=== PATIENT | male | born 1960 | race Caucasian/White ===

== ENCOUNTER → 2020-07-03 10:14 | Outpatient (CLI) | payer OTHER, SELFPAY ==
[2020-07-03 11:12] LABS: Add Manual Diff / Slide Review NO; Basophils Absolute Auto 0 /uL (0-100); Basophils Percent Auto 0.8 % (0-2); Eosinophils Absolute Auto 100 /uL (0-450); Eosinophils Percent Auto 2.3 % (2-4); Hematocrit 48.2 % (41-53); Hemoglobin 16.9 g/dL (13.5-17.5); Lymphocytes Absolute Auto 1400 /uL (1100-4500); Lymphocytes Percent Auto 33.2 % (25-40); Mean Corpuscular Volume 88.6 fL (80-100); Monocytes Absolute Auto 400 /uL (0-900); Monocytes Percent Auto 9.5 % (3-14); Neutrophils Absolute Auto 2300 /uL (1500-7000); Neutrophils Percent Auto 54.2 % (50-75); Platelet Count 132 X10^3/uL (150-400); Red Blood Cell Count 5.44 X10^6/uL (4.5-5.9); Red Cell Distribution Width 13.5 % (11.6-14.8); White Blood Cell Count 4.3 X10^3/uL (4.5-11.0)
[2020-07-03 11:31] LABS: Alanine Aminotransferase 49 IU/L (<50); Albumin 4.6 g/dL (3.5-5.0); Albumin Globulin Ratio 1.6 (1.0-2.8); Alkaline Phosphatase 72 U/L (38-126); Aspartate Aminotransferase 34 IU/L (17-59); BUN Creatinine Ratio 24.2 (6-22); Bilirubin Total 0.9 mg/dL (0.2-1.3); Blood Urea Nitrogen 22 mg/dL (9-20); Calcium 9.5 mg/dL (8.4-10.2); Carbon Dioxide 30 mmol/L (22-32); Chloride 105 mmol/L (98-107); Cholesterol 189 mg/dL (140-199); Estimated Glomerular Filt Rate > 60.0 mL/min (>60); Globulin 2.9 g/dL (1.7-4.1); Glucose 100 mg/dL (80-110); HDL Cholesterol 37 mg/dL (40-60); HEMOLYSIS < 15 (0-50); LDL Cholesterol Calculated 133 mg/dL (<100); Potassium 4.5 mmol/L (3.4-5.1); Sodium 141 mmol/L (137-145); Total Protein 7.5 g/dL (6.3-8.2); Triglycerides 93 mg/dL (35-150)
== END ==
PROVIDERS: PCP Family Medicine; Referring Provider Family Medicine; Visit Provider Family Medicine
DX: Z12.5 Encounter for screening for malignant neoplasm of prostate (principal); Z13.1 Encounter for screening for diabetes mellitus; I10 Essential (primary) hypertension
CPT/HCPCS: 36415; 80053; 80061; 83036; 85025; G0103

== ENCOUNTER → 2020-08-05 08:10 | Outpatient (CLI) | payer OTHER, SELFPAY ==
[2020-08-07 12:04] LABS: COVID19 Sendout Not Detected (Not Detect)
== END ==
PROVIDERS: PCP Family Medicine; Visit Provider Physician Assistant
DX: Z11.59 Encounter for screening for other viral diseases (principal)
CPT/HCPCS: 87635

== ENCOUNTER 2020-08-08 06:39 | Day surgery (SDC) | payer OTHER, SELFPAY ==
[2020-08-08] MEDS: LACTATED RINGERS 1,000 ML 200 ML IV (07:11)
[2020-08-08 07:21] VITALS: BP 144/87; PULSE 62; RESP 16; TEMP 36; O2SAT 98
[2020-08-08 07:23] VITALS: BMI 28.8
--- NOTE | 2020-08-08 07:29 | PM.HP.1 ---
History of Present Illness History of Present Illness Date Patient Seen: 08/08/20 Time Patient Seen: 07:29 Chief complaint: SCREENING COLONOSCOPY Narrative: Patient is here for screening colonoscopy. Last exam was 6 years ago. He had polyps removed at that time. No family history of cancer. Patient History Medical History Headache (Acute) History of colon polyps (Acute) Migraines (Acute) Pulmonary embolism (Resolved ~2000) Vision disorder (Chronic) Well adult exam (Acute) Surgical History Anesthesia (Resolved) History of foot surgery (Resolved ~08/1980) Family & Social History Family History Father Diabetes mellitus Hypertension Hyperlipidemia Stroke Mother Diabetes mellitus History of heart disease Hypertension Stroke Tobacco & Substance use: Smoking Status Never smoker Meds Home Medications and Allergies Home Medications Medication Instructions Recorded Confirmed Type ibuprofen 600 mg PO Q6HP #30 03/22/07/03/20 Rx Allergies Allergy/AdvReac Type Severity Reaction Status Date / Time calamine AdvReac Mild Skin Verified 08/08/20 07:20 redness Review of Systems Review of Systems ROS: Yes All systems reviewed with the patient and are negative except as otherwise documented Exam Vital Signs (past 8 hours): - 08/08/20 07:21 Temperature 96.8 F L Pulse Rate 62 Respiratory Rate 16 Blood Pressure 144/87 H Pulse Oximetry 98 Oxygen Delivery Method Room Air Narrative Exam Narrative: Pleasant cooperative patient no apparent distress. Lungs are clear to auscultation. No rales or rhonchi. Heart regular rate and rhythm no murmur gallop. Abdomen is soft nontender without mass. No obvious hernias. Patient is alert and oriented x3. Assessment & Plan Assessment & Plan narrative: The patient for a screening colonoscopy. I have discussed the procedure with them. Risks of bleeding, perforation which would necessitate major operation, failure to find remove all lesions, the potential tattoo were all discussed. All questions were answered. They wished to proceed.
--- NOTE | 2020-08-08 07:32 | PM.PREOP ---
Pre-operative Note COVID-19 COVID-19 status: Negative Result date/Date tested (Pos, Neg/Pending): 08/05/20 Interval Note History & Physical reviewed/Exam performed by Physician: Yes Changes to H&P: No ASA Class (for procedural sedation): I
[2020-08-08] MEDS: MIDAZOLAM 5 MG/5 ML VIAL IV (07:53)
[2020-08-08] MEDS: fentaNYL 250 MCG/5 ML INJ IV (07:55)
--- NOTE | 2020-08-08 08:15 | PM.OP.ENDO ---
Operative Date/Time/Diagnoses Date of procedure: 08/08/20 Time of procedure: 08:15 Pre-op diagnosis: History of polyps. Screening exam. Last exam 6 years ago. Post-op diagnosis: same (Diverticulosis sigmoid colon) Procedure & Clinicians Study performed: Colonoscopy Same procedure as scheduled: Yes Indications: Screening Surgeon: Deshaun Rutherford Procedure Notes SCOAP/Timeout: Perform Procedure in detail: The patient was placed in the left lateral decubitus position and underwent IV sedation directed by the surgeon consisting of fentanyl and Versed. Digital exam was unremarkable. Prostate is normal size.. The scope was inserted and advanced through the rectum into the sigmoid, descending, transverse, and ascending colon. Sigmoid diverticulosis was noted. The cecum was reached identified by the ileocecal valve and the appendiceal opening. . The scope was gradually brought out. No Polyps were found. The scope ultimately was retroflexed in the rectum. The appearance was normal. The scope was removed and the patient tolerated the procedure well. Prep was very good Scope withdrawal time: 7 minutes Sedation minutes: 22 Findings: diverticulosis (Sigmoid) Specimen(s): none sent Post-procedure Recommendations: Colonscopy in 5 years (Due to history of polyps) Follow up: as needed Disposition: PACU
[2020-08-08 08:16] VITALS: BP 107/66; PULSE 54; RESP 11; TEMP 36.1; O2SAT 98
[2020-08-08 08:21] VITALS: BP 103/64; PULSE 53; RESP 10; O2SAT 97
[2020-08-08 08:26] VITALS: BP 105/78; PULSE 55; RESP 12; O2SAT 98
--- NOTE | 2020-08-08 08:29 | SUR.PHASEI ---
denies dizziness, tolerating intake well, states that his normal systolic BP is 120ish. Oriented, drowsy, stable.
[2020-08-08 08:30] VITALS: BP 106/74; PULSE 55; RESP 12; TEMP 36.2; O2SAT 97
--- NOTE | 2020-08-08 09:16 | SUR.PHASEII ---
0845 late entry Tolerated procedure well, drowsy, tolerating PO well. No questions after info reviewed. Stable.
== END 2020-08-08 08:45 | disposition home or self-care (01) ==
PROVIDERS: PCP Family Medicine; Referring Provider Family Medicine; Visit Provider Specialist
PROC: 0DJD8ZZ Inspection of Lower Intestinal Tract, Via Natural or Artificial Opening Endoscopic (ICD-10-PCS; CPT 45378; principal; 2020-08-08 07:45)
DX: Z12.11 Encounter for screening for malignant neoplasm of colon (principal); Z86.010 Personal history of colon polyps; K57.30 Diverticulosis of large intestine without perforation or abscess without bleeding
CPT/HCPCS: 45378; 99152; J2250; J3010

== ENCOUNTER → 2021-03-01 09:57 | Outpatient (CLI) | payer OTHER, SELFPAY ==
[2021-03-01] MEDS: COVID-19 VACC #1, MRNA(MOD) 100 MCG/0.5 ML VIAL IM (10:04)
== END ==
PROVIDERS: PCP Family Medicine; Visit Provider Internal Medicine
DX: Z23 Encounter for immunization (principal)
CPT/HCPCS: 0011A; 91301

== ENCOUNTER → 2021-03-29 08:49 | Outpatient (CLI) | payer OTHER, SELFPAY ==
[2021-03-29] MEDS: COVID-19 VACC #2, MRNA(MOD) 100 MCG/0.5 ML VIAL IM (08:55)
== END ==
PROVIDERS: PCP Family Medicine; Visit Provider Internal Medicine
DX: Z23 Encounter for immunization (principal)
CPT/HCPCS: 0012A; 91301

== ENCOUNTER → 2023-08-19 09:23 | Outpatient (CLI) | payer OTHER, SELFPAY ==
[2023-08-19 11:28] LABS: Add Manual Diff / Slide Review NO; Basophils Absolute Auto 0 /uL (0-100); Basophils Percent Auto 0.9 % (0-2); Eosinophils Absolute Auto 100 /uL (0-450); Eosinophils Percent Auto 2.2 % (2-4); Hematocrit 48.4 % (41-53); Hemoglobin 16.7 g/dL (13.5-17.5); Lymphocytes Absolute Auto 1200 /uL (1100-4500); Lymphocytes Percent Auto 28.4 % (25-40); Mean Corpuscular HGB Conc 34.6 % (30-36); Mean Corpuscular Hemoglobin 31.1 PG (26-34); Mean Corpuscular Volume 89.9 fL (80-100); Monocytes Absolute Auto 400 /uL (0-900); Monocytes Percent Auto 8.9 % (3-14); Neutrophils Absolute Auto 2500 /uL (1500-7000); Neutrophils Percent Auto 59.6 % (50-75); Platelet Count 128 X10^3/uL (150-400); Red Blood Cell Count 5.38 X10^6/uL (4.5-5.9); Red Cell Distribution Width 14.2 % (11.6-14.8); White Blood Cell Count 4.2 X10^3/uL (4.5-11.0)
[2023-08-19 11:57] LABS: Alanine Aminotransferase 63 IU/L (<50); Albumin 4.3 g/dL (3.5-5.0); Albumin Globulin Ratio 1.4 (1.0-2.8); Alkaline Phosphatase 65 U/L (38-126); Aspartate Aminotransferase 30 IU/L (17-59); BUN Creatinine Ratio 27.7 (6-22); Bilirubin Total 0.8 mg/dL (0.2-1.3); Blood Urea Nitrogen 23 mg/dL (9-20); Calcium 9.3 mg/dL (8.4-10.2); Carbon Dioxide 30 mmol/L (22-32); Chloride 105 mmol/L (98-107); Cholesterol 204 mg/dL (140-199); Estimated Glomerular Filt Rate > 60 mL/min (>60); Globulin 3.1 g/dL (1.7-4.1); Glucose 94 mg/dL (80-110); HDL Cholesterol 38 mg/dL (40-60); HEMOLYSIS < 15 (0-50); LDL Cholesterol Calculated 146 mg/dL (<100); Potassium 4.5 mmol/L (3.4-5.1); Sodium 141 mmol/L (137-145); Total Protein 7.4 g/dL (6.3-8.2); Triglycerides 98 mg/dL (35-150)
[2023-08-19 11:58] LABS: HEMOLYSIS < 15 (0-50); Iron 160 ug/dL (49-181)
[2023-08-19 12:10] LABS: Percent Iron Saturation 46 % (20-50); Total Iron Binding Capacity 351 ug/dL (261-462); Transferrin 251 mg/dL (206-381)
[2023-08-19 12:18] LABS: Prostate Specific Antigen 1.25 ng/mL (0.10-4.00)
== END ==
PROVIDERS: PCP Family Medicine; Referring Provider Family Medicine; Visit Provider Family Medicine
DX: Z86.718 Personal history of other venous thrombosis and embolism (principal); I10 Essential (primary) hypertension; H53.9 Unspecified visual disturbance; G43.909 Migraine, unspecified, not intractable, without status migrainosus; E78.5 Hyperlipidemia, unspecified; Z12.5 Encounter for screening for malignant neoplasm of prostate; R53.83 Other fatigue
CPT/HCPCS: 36415; 80053; 80061; 83540; 83550; 84153; 84443; 85025

== ENCOUNTER → 2023-09-17 07:43 | Outpatient (CLI) | payer OTHER, SELFPAY ==
--- NOTE | 2023-09-18 01:54 | DI.NM.S_ITS ---
DATE OF SERVICE: 09/17/2023 PROCEDURE: Exercise stress test. INDICATION: Chest pain, hyperlipidemia. CARDIAC STRESS: Patient underwent exercise stress test under the supervision of an attending staff. He walked on Alex protocol for about 7 minutes, achieved maximum heart rate of 133, which is 85% of target heart rate. Resting blood pressure 122/86 and peak blood pressure 196/100 mmHg. Achieved eight METs of workload. BJORN positive 11%. Baseline rhythm sinus. During stress, no convincing ischemic changes seen; however, patient has frequent PVCs including 3 to 5 beats run of frequent nonsustained ventricular tachycardia. During NSVT, the patient felt throbbing in jaw area. No sustained ventricular tachycardia or AFib. No convincing ischemic EKG changes. CONCLUSION: Exercise stress test did not induce any inducible ischemic changes; however, patient has frequent PVCs during exercise, including isolated PVCs as well as 3 to 5 beats run of nonsustained ventricular tachycardia, mostly monomorphic. During nonsustained ventricular tachycardia. Patient felt throbbing jaw discomfort. Diminished exercise tolerance. Mildly hypertensive blood pressure response. Peak blood pressure 196/100. Consider repeating exercise stress test with perfusion study for further CAD risk stratification and diagnosis. Consider blood pressure control as well as trial of beta malick and electrolyte evaluation as well as 2D echo to make sure there is no significant structural heart disease. Silas Singh - PHUONG/sonya/ruben doc#: [id number]/job#: [id number] dd: 09/17/2023 17:07:00 dt: 09/18/2023 01:46:00 DICTATING MD/COPIES TO: Janneth Jorge MD; Kiko Dhaliwal, COPIES MNE: SATURNINO;
== END ==
PROVIDERS: PCP Family Medicine; Referring Provider Family Medicine; Visit Provider Family Medicine
DX: I49.3 Ventricular premature depolarization (principal)
CPT/HCPCS: 93017

== ENCOUNTER → 2024-05-07 06:56 | Outpatient (CLI) | payer OTHER, SELFPAY ==
[2024-05-07 08:19] LABS: Alanine Aminotransferase 52 IU/L (<50); Albumin 4.3 g/dL (3.5-5.0); Albumin Globulin Ratio 1.7 (1.0-2.8); Alkaline Phosphatase 71 U/L (38-126); Aspartate Aminotransferase 32 IU/L (17-59); BUN Creatinine Ratio 24.1 (6-22); Blood Urea Nitrogen 21 mg/dL (9-20); Calcium 8.9 mg/dL (8.4-10.2); Carbon Dioxide 26 mmol/L (22-32); Chloride 107 mmol/L (98-107); Cholesterol 187 mg/dL (140-199); Estimated Glomerular Filt Rate > 60 mL/min (>60); Globulin 2.5 g/dL (1.7-4.1); Glucose 101 mg/dL (80-110); HDL Cholesterol 41 mg/dL (40-60); HEMOLYSIS < 15 (0-50); LDL Cholesterol Calculated 117 mg/dL (<100); Potassium 4.2 mmol/L (3.4-5.1); Sodium 139 mmol/L (137-145); Total Protein 6.8 g/dL (6.3-8.2); Triglycerides 143 mg/dL (35-150)
== END ==
PROVIDERS: PCP Family Medicine; Referring Provider Family Medicine; Visit Provider Family Medicine
DX: E78.5 Hyperlipidemia, unspecified (principal)
CPT/HCPCS: 36415; 80053; 80061

== ENCOUNTER → 2024-05-11 10:43 | Outpatient (CLI) | payer OTHER, SELFPAY ==
--- NOTE | 2024-05-11 10:44 | DI.RAD.S_ITS ---
PROCEDURE: XR KNEE RT 3V INDICATIONS: Progressive post activity right knee pain TECHNIQUE: 3 views of the knee were acquired. COMPARISON: [facility], , KNEE 3V RIGHT, 12/26/2016, 16:34. FINDINGS: Bones: Tricompartmental joint space narrowing with associated osteophytosis. New joint loose bodies measuring 9 mm in the inferior, anterior joint and 13 mm in the anterior, superior joint. Calcifications within the patellar and quadriceps tendons. Soft tissues: Moderate joint effusion. No suspicious soft tissue calcifications. IMPRESSION: Moderate knee joint effusion without acute bony abnormality. 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 Bulky joint loose bodies measuring 13 mm and 9 mm. Dictated by: Kalia Jauregui M.D. on 05/11/2024 at 12:09 Approved by: Kalia Jauregui M.D. on 05/11/2024 at 12:10
== END ==
PROVIDERS: PCP Family Medicine; Referring Provider Family Medicine; Visit Provider Family Medicine
DX: M17.11 Unilateral primary osteoarthritis, right knee (principal); M23.41 Loose body in knee, right knee; M25.461 Effusion, right knee; M25.561 Pain in right knee; I10 Essential (primary) hypertension; E78.5 Hyperlipidemia, unspecified
CPT/HCPCS: 73562

== ENCOUNTER 2024-08-27 08:47 | Emergency (ER) | payer OTHER, SELFPAY ==
[2024-08-27] VITALS (13 sets, daily range): BP systolic 124–153; BP diastolic 87–104; PULSE 73–87; RESP 12–24; TEMP 37; O2SAT 94–97; BMI 30.5
--- NOTE | 2024-08-27 09:04 | DI.RAD.S_ITS ---
PROCEDURE: XR CHEST 1V INDICATIONS: chest pain TECHNIQUE: One view of the chest was acquired. COMPARISON: None. FINDINGS: Surgical changes and devices: None. Lungs and pleura: Lungs are clear. No pleural effusions or pneumothorax. Mediastinum: Mediastinal contours appear normal. Heart size is normal. Bones and chest wall: No suspicious bony lesions. Overlying soft tissues appear unremarkable. IMPRESSION: No acute cardiopulmonary pathology. Dictated by: Stanley Cervantes M.D. on 08/27/2024 at 9:48 Approved by: Stanley Cervantes M.D. on 08/27/2024 at 9:48
[2024-08-27 09:15] LABS: Add Manual Diff / Slide Review NO; Basophils Absolute Auto 0 /uL (0-100); Basophils Percent Auto 0.6 % (0-2); Eosinophils Absolute Auto 100 /uL (0-450); Eosinophils Percent Auto 2.5 % (2-4); Hematocrit 50.5 % (41-53); Hemoglobin 17.6 g/dL (13.5-17.5); Lymphocytes Absolute Auto 1300 /uL (1100-4500); Lymphocytes Percent Auto 22.8 % (25-40); Mean Corpuscular HGB Conc 34.8 % (30-36); Mean Corpuscular Hemoglobin 31.3 PG (26-34); Monocytes Absolute Auto 400 /uL (0-900); Monocytes Percent Auto 8.1 % (3-14); Neutrophils Absolute Auto 3700 /uL (1500-7000); Platelet Count 101 X10^3/uL (150-400); Red Blood Cell Count 5.61 X10^6/uL (4.5-5.9); Red Cell Distribution Width 13.4 % (11.6-14.8); White Blood Cell Count 5.5 X10^3/uL (4.5-11.0)
--- NOTE | 2024-08-27 09:16 | EKG_ITS ---
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
[2024-08-27 09:21] LABS: INR 1.1 (0.9-1.3); Prothrombin Time 12.5 SECONDS (9.4-12.5)
[2024-08-27 09:23] LABS: PTT Partial Thromboplastin Tim 37 SECONDS (25.1-36.5)
[2024-08-27 09:26] LABS: Alanine Aminotransferase 40 IU/L (<50); Albumin 4.4 g/dL (3.5-5.0); Albumin Globulin Ratio 1.5 (1.0-2.8); Alkaline Phosphatase 82 U/L (38-126); Aspartate Aminotransferase 27 IU/L (17-59); BUN Creatinine Ratio 25.9 (6-22); Blood Urea Nitrogen 22 mg/dL (9-20); Calcium 9.3 mg/dL (8.4-10.2); Carbon Dioxide 24 mmol/L (22-32); Chloride 106 mmol/L (98-107); Creatine Kinase 39 U/L (55-170); Estimated Glomerular Filt Rate > 60 mL/min (>60); Glucose 113 mg/dL (80-110); HEMOLYSIS < 15 (0-50); Lipase 59 U/L (23-300); Potassium 4.1 mmol/L (3.4-5.1); Sodium 139 mmol/L (137-145); Total Protein 7.4 g/dL (6.3-8.2)
[2024-08-27 09:37] LABS: NT-proBNP (BNP-Adult 18+) 33 pg/mL (<125); Troponin I 0.054 ng/mL (0.01-0.034)
--- NOTE | 2024-08-27 09:59 | ED.ARRPALP ---
HPI - Arrhythmia/Palpitations General Chief Complaint: Arrhythmia/Palpitations Stated Complaint: extra tick in heart/light headed, weakness Time Seen by Provider: 08/27/24 09:58 Source: patient Mode of arrival: Ambulatory History of Present Illness HPI narrative: Patient 63-year-old male history of borderline hypertension hyperlipidemia remote history of pulmonary embolism after broken foot in 2000, presenting today with a tick in his heart he reports that he has had an extra taken his 25 comes and goes however today he is feeling more. He does not describe it as palpitations or dizziness or fluttering. He denies heaviness. reports that the family has been sick with cold for the last 4-5 days. He has had fever and some congestion. He has had increased fatigue some mild shortness of breath with exertion as well. They had home negative COVID test 5 days ago. This morning he woke up he was diaphoretic generally not feeling well. No abdominal pain nausea or vomiting. Family history mom had [place] in her 20's she was significantly overweight with diabetes. Related Data Home Medications Medication Instructions Recorded Confirmed No Known Home Medications 08/19/23 05/11/24 Allergies Allergy/AdvReac Type Severity Reaction Status Date / Time calamine AdvReac Mild Skin Verified 05/11/24 10:04 redness Patient History Medical History Right knee pain Repetitive strain injury of lower back Atypical chest pain Borderline hyperlipidemia History of colon polyps Vision disorder Migraines Headache Pulmonary embolism (~2000) Well adult exam Surgical History Anesthesia History of foot surgery (~08/1980) Family History Father Diabetes mellitus Hypertension Hyperlipidemia Stroke Mother Diabetes mellitus History of heart disease Hypertension Stroke Social History household members: spouse Smoking Status: Never smoker alcohol intake: never Smoking Status: Never smoker alcohol intake frequency: 0-2 drinks per day Substance Use Type: does not use Exam Initial Vital Signs Initial Vital Signs: Vital Signs Temperature 98.6 F 08/27/24 08:55 Pulse Rate 78 08/27/24 08:55 Respiratory Rate 12 08/27/24 08:55 Blood Pressure 153/104 H 08/27/24 08:55 Pulse Oximetry 97 08/27/24 08:55 Oxygen Delivery Method Room Air 08/27/24 08:55 GENERAL: Alert 63-year-old male appears and in no acute distress. HEENT: Head atraumatic,EOMI, pupils reactive, face symmetric, moist mucous membranes CARDIOVASCULAR: Regular rate and rhythm without murmurs, rubs or gallops. RESPIRATORY: Breath sounds equal bilaterally, no wheezes rales or rhonchi. ABDOMEN: Soft, nontender. Normoactive bowel sounds all 4 quadrants. No guarding or rebound. EXTREMITIES: Normal range of motion, no clubbing or edema. Neurovascularly intact NEUROLOGICAL: Alert and oriented x4.Normal gait and speech. Cranial nerves II through XII grossly intact. SKIN: Warm, dry, no laceration, no petechiae, no rashes or lesions. Scores HEART Score Heart Score history: Moderately Suspicious Heart Score EKG: Normal Heart Score Age: 45-64 years old Heart Score risk factors: > 3 risk factors or hx of atherosclerotic disease Heart Score troponin: < or = to normal limit Heart Score Total: 4 Course Orders Ordered: ED Orders 08/27/24 09:02 Complete Blood Count AUTO DIFF Stat Comprehensive Metabolic Panel Stat D Dimer Stat Lipase Stat Magnesium Stat NT-proBNP (BNP-Adult 18+) Stat PTT Partial Thromboplastin Lio Stat Prothrombin Time INR Stat Troponin & CK Cardiac Panel Stat 08/27/24 09:04 XR chest 1V Stat EKG-12 Lead Stat 08/27/24 10:05 EKG-12 Lead Stat 08/27/24 10:30 COVID19 -Nasal RAPID Stat 08/27/24 11:02 CT angio chest PE protocol Stat 08/27/24 11:10 Troponin I Stat 08/27/24 12:42 EC echo limited Stat Discontinued Medications Heparin Sodium (Porcine) (Heparin 5,000 Unit/Ml Vial) 8,000 unit 80 unit/kg (8000 unit) IV NOW ONE Stop: 08/27/24 11:55 Last Admin: 08/27/24 12:07 Dose: 8,000 unit Documented By: EUGENE Heparin Sodium/Dextrose (Heparin Drip) 25,000 unit in 500 mls @ 36.741 mls/hr IV CONT MENDY; Protocol Last Titration: 08/27/24 13:26 Dose: 18 units/kg/hr, 36.741 mls/hr Documented By: EUGENE Co-signed By: LILLIAN Admin: 08/27/24 12:09 Dose: 18 units/kg/hr, 36.741 mls/hr Documented By: EUGENE Co-signed By: LILLIAN Vital Signs Vital signs: Vital Signs - 8 hr 08/27/24 08:55 08/27/24 09:00 08/27/24 09:01 Temperature 98.6 F Pulse Rate 78 76 Respiratory Rate 12 15 Blood Pressure 153/104 H 153/104 H Pulse Oximetry 97 96 Oxygen Delivery Method Room Air Room Air 08/27/24 09:30 08/27/24 09:30 08/27/24 10:00 Temperature Pulse Rate 73 74 Respiratory Rate 14 13 Blood Pressure 139/94 H Pulse Oximetry 96 95 Oxygen Delivery Method Room Air 08/27/24 10:00 08/27/24 10:30 08/27/24 10:30 Temperature Pulse Rate 76 Respiratory Rate Blood Pressure 124/87 135/95 H Pulse Oximetry 95 Oxygen Delivery Method Room Air 08/27/24 11:00 08/27/24 11:00 08/27/24 11:22 Temperature Pulse Rate 77 81 Respiratory Rate 21 16 Blood Pressure 150/93 H Pulse Oximetry 95 94 Oxygen Delivery Method 08/27/24 11:22 08/27/24 11:30 08/27/24 11:30 Temperature Pulse Rate 79 Respiratory Rate 14 Blood Pressure 151/97 H 131/93 H Pulse Oximetry 95 Oxygen Delivery Method Room Air 08/27/24 12:00 08/27/24 12:00 08/27/24 12:30 Temperature Pulse Rate 81 82 Respiratory Rate 15 17 Blood Pressure 147/95 H Pulse Oximetry 96 96 Oxygen Delivery Method Room Air 08/27/24 13:00 08/27/24 13:14 08/27/24 13:14 Temperature Pulse Rate 85 87 Respiratory Rate 16 24 Blood Pressure 140/100 H Pulse Oximetry 95 95 Oxygen Delivery Method MDM - Arrhythmia/Palpitations Lab Data 08/27/24 09:02 08/27/24 09:02 Labs: Lab Results 08/27/24 08/27/24 08/27/24 Range/Units 09:02 10:30 11:10 WBC 5.5 (4.5-11.0) X10^3/uL RBC 5.61 (4.5-5.9) X10^6/uL Hgb 17.6 H (13.5-17.5) g/dL Hct 50.5 (41-53) % MCV 90.0 (80-100) fL MCH 31.3 (26-34) PG MCHC 34.8 (30-36) % RDW 13.4 (11.6-14.8) % Plt Count 101 L (150-400) X10^3/uL Neut % (Auto) 66.0 (50-75) % Lymph % (Auto) 22.8 L (25-40) % [place]osa % (Auto) 8.1 (3-14) % Eos % (Auto) 2.5 (2-4) % Baso % (Auto) 0.6 (0-2) % Neut # (Auto) 3700 (2023-2360) /uL Lymph # (Auto) 1300 (7351-6222) /uL [place] # (Auto) 400 (0-900) /uL Eos # (Auto) 100 (0-450) /uL Baso # (Auto) 0 (0-100) /uL PT 12.5 (9.4-12.5) SECONDS INR 1.1 (0.9-1.3) APTT 37 H (25.1-36.5) SECONDS D-Dimer 6552 H (<500) ng/ml Sodium 139 (137-145) mmol/L Potassium 4.1 (3.4-5.1) mmol/L Chloride 106 (98-107) mmol/L Carbon Dioxide 24 (22-32) mmol/L BUN 22 H (9-20) mg/dL Creatinine 0.85 (0.66-1.25) mg/dL Estimated GFR > 60 (>60) mL/min BUN/Creatinine Ratio 25.9 H (6-22) Glucose 113 H (80-110) mg/dL Calcium 9.3 (8.4-10.2) mg/dL Magnesium 2.0 (1.6-2.3) mg/dL Total Bilirubin 1.0 (0.2-1.3) mg/dL AST 27 (17-59) IU/L ALT 40 (<50) IU/L Alkaline Phosphatase 82 (38-126) U/L Total Creatine Kinase 39 L (55-170) U/L Troponin I 0.054 H 0.214 H* (0.01-0.034) ng/mL NT-Pro-B Natriuret Pep 33 (<125) pg/mL Total Protein 7.4 (6.3-8.2) g/dL Albumin 4.4 (3.5-5.0) g/dL Globulin 3.0 (1.7-4.1) g/dL Albumin/Globulin Ratio 1.5 (1.0-2.8) Lipase 59 (23-300) U/L SARS-CoV-2 (PCR) Negative (Negative) Imaging Data Chest x-ray: Radiologist's Impresson: PROCEDURE: XR CHEST 1V INDICATIONS: chest pain TECHNIQUE: One view of the chest was acquired. COMPARISON: None. FINDINGS: Surgical changes and devices: None. Lungs and pleura: Lungs are clear. No pleural effusions or pneumothorax. Mediastinum: Mediastinal contours appear normal. Heart size is normal. Bones and chest wall: No suspicious bony lesions. Overlying soft tissues appear unremarkable. IMPRESSION: No acute cardiopulmonary pathology. Dictated by: Stanley Cervantes M.D. on 08/27/2024 at 9:48 CT scan - chest: Radiologist's Impresson: PROCEDURE: CT ANGIO CHEST PE PROTOCOL INDICATIONS: very high dimer TECHNIQUE: After the administration of intravenous contrast, 2 mm thick sections acquired from the pulmonary apices to the posterior costophrenic angles. 3-dimensional maximum intensity projection (MIP) coronal and sagittal reformats were then acquired through the thorax. For radiation dose reduction, the following was used: automated exposure control, adjustment of mA and/or kV according to patient size. COMPARISON: [facility], , XR CHEST 1V, 08/27/2024, 9:05. FINDINGS: Image quality: Diagnostic. Pulmonary arteries: Pulmonary arteries are normal in size. Extensive intraluminal filling defects are noted extending from main pulmonary artery bifurcation into bilateral main pulmonary arteries as well as segmental and subsegmental branches of bilateral pulmonary arteries. Lower Neck: No enlarged lymph nodes. Thyroid: No thyroid nodules which require sonographic follow up, per consensus guidelines. Axillae: No enlarged lymph nodes. Chest Wall: Unremarkable. Bones: No aggressive appearing bony lesions.. Lungs and Pleura: No pneumothorax or pleural effusions. Bibasilar scarring/atelectasis are seen. No suspicious pulmonary nodules. Heart: Heart size is normal. No pericardial effusion. There are signs of right heart strain. Thoracic Vessels: No aortic aneurysm. Mediastinum and Marily: No enlarged lymph nodes. Esophagus: No wall thickening. No hiatal hernia. Upper Abdomen: Visualized upper abdomen solid organs and bowel loops appear normal. IMPRESSION: 1. Extensive bilateral pulmonary embolism with signs of right heart strain. 2. Bibasilar scarring/atelectasis. No focal infiltrate, pleural effusion or pneumothorax. 3. No mediastinal or hilar lymphadenopathy by size criteria. Findings were reported to Dr. Whiting in the ER on 08/27/2024 at 11:55 a.m.. Dictated by: Stanley Cervantes M.D. on 08/27/2024 at 11:53 ECG Data Attestation: I personally reviewed and interpreted this ECG as follows: Prior ECG tracings: not available for review Interpretation: Normal sinus rhythm rate 75 OK interval 170 QRS [address] changes, Q-wave noted in lead 3 Repeat EKGs sinus rhythm persistent Q-wave in 3 MDM Narrative Medical decision making narrative: MDM CC: Heart tick Complicating co-morbidities: Hypertension hyperlipidemia prior PE in 2000 Medical records reviewed: Previous knee injections but no recent surgeries Differential considered: Viral illness acute coronary syndrome palpitations arrhythmia pulmonary embolism Exam documented above, pertinent findings include: Well-appearing no murmur no difficulty breathing no lower extremity edema Lab Test results independently reviewed as above. Pertinent findings: Troponin 0.054--> 0.21 D-dimer 6552 CBC no leukocytosis no anemia CMP creatinine 0.85 electrolytes stable Independently reviewed EKG as above no arrhythmia no tachycardia no S1 Q 3 T3 Imaging studies independently reviewed: Large extensive pulmonary embolism found on CT Consultations: 12:44 Dr. Juarez 12:55 Dr. Steiner ED accepts Treatments: Heparin Re-evaluations: Patient remains hemodynamically stable not hypoxic or hypotensive Discussion: Patient is 63-year-old male presenting today with heart took. He has had some upper respiratory like symptoms he has no respiratory distress. 1st troponin is found to be indeterminate 0.054 with a repeat of 0.21. D-dimer is also noted to be excessively elevated at 6550. CTA does show bilateral extensive pulmonary embolism radiology called me with concerns for saddle. Cardiology consulted at [facility]. Arrangements have been made with interventionalist for EKOS procedure and thrombectomy. They wanted patient transferred immediately on heparin drip Have discussed with length of patient and family in the room risks benefits of extensive pulmonary embolism including . Critical Care Time Critical Care Time Critical Care Time: Yes Total Critical Care Time: 40 Attestation: The high probability of a clinically significant, sudden or life threatening deterioration of the [cardiovascular] system(s) required my full and direct attention, intervention and personal management. The aggregate critical care time was 40 minutes. This time is in addition to time spent performing reported procedures but includes the following: [x] Data Review and interpretation [x] Patient assessment and monitoring of vital signs [x] Documentation [x] Medication orders and management Discharge Plan Departure Patient Disposition: [facility] Clinical Impression: Pulmonary embolism Prescriptions: No Action No Known Home Medications Referrals: Kiko Dhaliwal DO [Primary Care Provider] -
--- NOTE | 2024-08-27 10:05 | EKG_ITS ---
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
[2024-08-27 10:28] LABS: D Dimer 6552 ng/ml (<500)
--- NOTE | 2024-08-27 11:02 | DI.CT.S_ITS ---
PROCEDURE: CT ANGIO CHEST PE PROTOCOL INDICATIONS: very high dimer TECHNIQUE: After the administration of intravenous contrast, 2 mm thick sections acquired from the pulmonary apices to the posterior costophrenic angles. 3-dimensional maximum intensity projection (MIP) coronal and sagittal reformats were then acquired through the thorax. For radiation dose reduction, the following was used: automated exposure control, adjustment of mA and/or kV according to patient size. COMPARISON: [facility], CR, XR CHEST 1V, 08/27/2024, 9:05. FINDINGS: Image quality: Diagnostic. Pulmonary arteries: Pulmonary arteries are normal in size. Extensive intraluminal filling defects are noted extending from main pulmonary artery bifurcation into bilateral main pulmonary arteries as well as segmental and subsegmental branches of bilateral pulmonary arteries. Lower Neck: No enlarged lymph nodes. Thyroid: No thyroid nodules which require sonographic follow up, per consensus guidelines. Axillae: No enlarged lymph nodes. Chest Wall: Unremarkable. Bones: No aggressive appearing bony lesions.. Lungs and Pleura: No pneumothorax or pleural effusions. Bibasilar scarring/atelectasis are seen. No suspicious pulmonary nodules. Heart: Heart size is normal. No pericardial effusion. There are signs of right heart strain. Thoracic Vessels: No aortic aneurysm. Mediastinum and Marily: No enlarged lymph nodes. Esophagus: No wall thickening. No hiatal hernia. Upper Abdomen: Visualized upper abdomen solid organs and bowel loops appear normal. IMPRESSION: 1. Extensive bilateral pulmonary embolism with signs of right heart strain. 2. Bibasilar scarring/atelectasis. No focal infiltrate, pleural effusion or pneumothorax. 3. No mediastinal or hilar lymphadenopathy by size criteria. Findings were reported to Dr. Whiting in the ER on 08/27/2024 at 11:55 a.m.. Dictated by: Stanley Cervantes M.D. on 08/27/2024 at 11:53 Approved by: Stanley Cervantes M.D. on 08/27/2024 at 11:59
[2024-08-27 11:05] LABS: COVID19 -Nasal RAPID Negative (Negative)
[2024-08-27 11:43] LABS: Troponin I 0.214 ng/mL (0.01-0.034)
[2024-08-27] MEDS: HEPARIN 5,000 UNIT/ML VIAL 8000 UNIT IV (12:07)
[2024-08-27] MEDS: HEPARIN DRIP 25,000 UNIT/500 ML IV.SOLN 36.741 UNIT IV (12:09)
--- NOTE | 2024-08-27 12:26 | PC.NURSE ---
Hospital Call List for Patient Transfer 1200: [facility], spoke to Faby, boarding 23 in ED, no wait list. Paged employee relations administrator Dr. Juarez 1210: [facility], spoke to Eder, very busy and full, patient on wait list 1216: [facility], spoke to Bonita, patient placed on wait list 1224: [facility], spoke to Nancy, stated was back logged and will call back when she have availability to take patient information
== END 2024-08-27 13:33 | disposition short-term general hospital (02) ==
PROVIDERS: Emergency Provider Emergency Medicine; PCP Family Medicine
DX: I26.99 Other pulmonary embolism without acute cor pulmonale (principal); I10 Essential (primary) hypertension; R07.9 Chest pain, unspecified; Z11.52 Encounter for screening for COVID-19
CPT/HCPCS: 36415; 71045; 71275; 80053; 82550; 83690; 83735; 83880; 84484; 85025; 85379; 85610; 85730; 87635; 93005; 93010; 96365; 96375; 99285; 99291; J1644; Q9967

== ENCOUNTER → 2025-04-01 08:10 | Outpatient (CLI) | payer MEDICARE, SELFPAY ==
--- NOTE | 2025-04-01 08:11 | DI.MRI.S_ITS ---
PROCEDURE: MR KNEE RT WO CON INDICATIONS: TEAR OF LATERAL MENISCUS RT KNEE TECHNIQUE: Noncontrast sagittal PD fast spin echo and T2 fast spin echo with fat saturation, sagittal 3-D FLASH with fat saturation; coronal T1 spin echo and PD fast spin echo with fat saturation, and axial PD fast spin echo with fat saturation through the knee. COMPARISON: [facility], CR, XR KNEE ARTHRITIC SERIES RT, 11/01/2024, 7:56, unsuccessful retrieval of 05/01/2018 MRI knee without contrast exam FINDINGS: Image quality: Excellent. Bones: Subchondral cyst formation is present at the posterior aspect of the medial intercondylar notch (/). The bone marrow signal is otherwise normal. There is no acute fracture or dislocation. Joints: There is a small knee joint effusion. At least 4 intra-articular bodies are identified: A 0.8 cm body adjacent to the semimembranosus tendon attachment (/33), a 0.7 cm body adjacent to the anterior tibial plateau (/29), a 0.7 intra-articular body posterior to the anterior cruciate ligament at the femoral attachment site (/; /) and a 1.4 cm intra-articular body in the inferior Hoffa's fat pad contacting the patellar tendon (/16). There is moderate-severe knee osteoarthritis. Mckeon's cyst: None. Menisci: There is a complex tear of the body and posterior horn of the medial meniscus as well as a full-thickness radial tear between the posterior horn and posterior root attachment (/15-27). There is 4 mm of medial meniscal body extrusion into the medial gutter (/). The lateral meniscus and its posterior root attachment are intact. Cruciate ligaments: There is heterogeneity and intermediate signal of the anterior cruciate ligament throughout its course, along with remodeling of the intercondylar notch with multifocal small osteophyte formation (/). The posterior cruciate ligament is normal. Collateral ligaments: There is low signal thickening of the tibial collateral ligament. The medial collateral ligament complex is otherwise normal. The lateral collateral ligament complex is normal. Popliteus Muscle/Tendon: The popliteus muscle and tendon are normal. Extensor mechanism: There is low signal thickening of the quadriceps tendon with enthesopathy along its distal course (9/16). There is low signal thickening of the patellar tendon with enthesopathy along its proximal and inferior attachment points (9/15). There is enthesopathy along the medial lateral patellar retinacular attachments along the patella (8/11). Articular cartilage: There are multifocal areas of full-thickness cartilage loss throughout the weight-bearing medial compartment. Partial thickness chondral loss and surface fibrillation is present at the weight-bearing lateral compartment (13/22). Multifocal areas of deep partial thickness chondral fissuring are present throughout the patellofemoral compartment, predominantly at the femoral trochlea (8/22). Other: No other acute findings. IMPRESSION: 1. Moderate-severe knee osteoarthritis with intra-articular bodies, small joint effusion, associated articular cartilage defects, possibly posttraumatic. 2. Findings of prior anterior cruciate ligament tearing with subsequent remodeling/scarring and mucoid degeneration. 3. Complex tear of the medial meniscus with posterior root avulsion and 4 mm of meniscal body extrusion into the medial gutter. 4. Mild MCL sprain. 5. Enthesopathy of the quadriceps tendon, patellar tendon, and retinacular attachments, which may be secondary to prior traction apophysitis versus sequelae of prior traumatic injury. Dictated by: Víctor Diaz M.D. on 04/01/2025 at 12:59 Approved by: Víctor Diaz M.D. on 04/01/2025 at 13:25
== END ==
LOC: MRI 08:10
PROVIDERS: PCP Family Medicine; Referring Provider Orthopaedic Surgery Foot and Ankle Surgery; Visit Provider Orthopaedic Surgery Foot and Ankle Surgery
DX: S83.231A Complex tear of medial meniscus, current injury, right knee, initial encounter (principal); S83.411A Sprain of medial collateral ligament of right knee, initial encounter; S83.511A Sprain of anterior cruciate ligament of right knee, initial encounter; M17.11 Unilateral primary osteoarthritis, right knee; M25.461 Effusion, right knee
CPT/HCPCS: 73721

== ENCOUNTER 2025-06-03 07:25 | Emergency (ER) | payer MEDICARE, SELFPAY ==
[2025-06-03 07:31] VITALS: BP 136/78; PULSE 55; RESP 16; TEMP 35.6; O2SAT 96; BMI 31.1
--- NOTE | 2025-06-03 07:38 | DI.RAD.S_ITS ---
PROCEDURE: XR CHEST 1V INDICATIONS: dizzy, low bp TECHNIQUE: One view of the chest was acquired. COMPARISON: [facility], CR, XR CHEST 1V, 08/27/2024, 9:05. FINDINGS: Surgical changes and devices: None. Lungs and pleura: Lungs are clear. No pleural effusions or pneumothorax. Mediastinum: Mediastinal contours appear normal. Heart size is normal. Bones and chest wall: No suspicious bony lesions. Overlying soft tissues appear unremarkable. IMPRESSION: No acute cardiopulmonary pathology. Dictated by: Stanley Cervantes M.D. on 06/03/2025 at 8:03 Approved by: Stanley Cervantes M.D. on 06/03/2025 at 8:03
--- NOTE | 2025-06-03 07:39 | ED.GENADULT ---
HPI - General Adult General Chief complaint: Syncope Stated complaint: Orthostatic hypotension Time Seen by Provider: 06/03/25 07:30 Source: patient, EMS, RN notes reviewed and old records reviewed Mode of arrival: EMS Limitations: no limitations History of Present Illness HPI narrative: 64-year-old male history of antiphospholipid syndrome, prior DVT and pulmonary embolism on Eliquis daily who had arthroscopic surgery this Friday with Dr. Bautista. Patient states he has been doing well since his surgery, had increased activity yesterday so using his leg more. States it is morning he had had hydrocodone only his 2nd dose, took his morning Eliquis and states that he had gotten out of bed started ambulating to get his coffee and was headed back to sit down with a his coffee when he started to feel very dizzy. He states he did not pass out although family at bedside states that he seemed to be out for a brief period of time. They were able to seat him and he did not fall. States he was very sweaty. He denies headache, no chest pain, no shortness of breath. No nausea or vomiting. No other GI or urinary symptoms no incontinence. Notes some swelling of his right lower extremity postoperatively but states he also has increased his activity quite a bit in the last 24 hours with his knee. Denies any increased or new pain, no redness, warmth or other changes. Patient states he restarted his Eliquis on Friday and has been taking it regularly. He states he took his 1st dose of hydrocodone last night and a 2nd 1 this morning. States no other daily medications. Denies any other major surgeries, no known drug allergies. No tobacco, alcohol or recreational drugs. He states he feels back to normal he states he did not feel unwell prior to this. Related Data Previous Rx's ?Medication ?Instructions ?Recorded apixaban 5 mg tablet (Eliquis) 5 mg PO BID #180 tabs 03/21/25 Allergies Allergy/AdvReac Type Severity Reaction Status Date / Time calamine AdvReac Mild Skin Verified 04/05/25 08:07 redness Review of Systems Review of Systems ROS Unobtainable: All systems reviewed & are unremarkable except as noted in HPI and below Patient History Medical History Pulmonary embolism on long-term anticoagulation therapy History of pulmonary embolism Right knee pain Repetitive strain injury of lower back Atypical chest pain Borderline hyperlipidemia History of colon polyps Vision disorder Migraines Headache Pulmonary embolism (~2000) Well adult exam Surgical History Anesthesia History of foot surgery (~08/1980) Family History Father Diabetes mellitus Hypertension Hyperlipidemia Stroke Mother Diabetes mellitus History of heart disease Hypertension Stroke Social History household members: spouse alcohol intake: never alcohol intake frequency: 0-2 drinks per day Exam Narrative Exam Narrative: GEN: well nourished, well appearing male, alert and oriented x 3, patient appears to be in mild distress. HEENT: Atraumatic, pupils are equal round reactive to light, extraocular movements are intact, nares are clear, there is no conjunctival pallor. Throat is clear without any exudates, erythema, tonsillar enlargement or uvular deviation HEART: Regular rate and rhythm without murmur, clicks, rubs. No JVD. Mild edema right lower extremity comparison to left. Patient was some mild ecchymosis of the knee. LUNGS:Lungs clear to auscultation, no wheezes, rales, crackles, chest moves symmetrically ABD:bowel sounds normal, soft, non-tender, no guarding, rebound, rigidity, no masses noted, no hepatosplenomegaly :No CVA tenderness MSCL: Non-tender, no muscle atrophy, muscles strength 5/5 upper and lower extremities, full range of motion, patient has sutures at the right patellar region, clean dry and intact, patient does have some swelling and some ecchymosis. He was nontender throughout. Has some flexion-extension although not taken through entire range of motion. Has 2+ pulses bilaterally. CT squeeze is negative. NEURO:CN 2-12 intact, sensation normal. Initial Vital Signs Initial Vital Signs: Vital Signs Temperature 96.1 F L 06/03/25 07:31 Pulse Rate 55 L 06/03/25 07:31 Respiratory Rate 16 06/03/25 07:31 Blood Pressure 136/78 06/03/25 07:31 Pulse Oximetry 96 06/03/25 07:31 Oxygen Delivery Method Room Air 06/03/25 07:31 Course Orders Ordered: ED Orders 06/03/25 07:17 Complete Blood Count AUTO DIFF Stat Comprehensive Metabolic Panel Stat Lipase Stat NT-proBNP (BNP-Adult 18+) Stat Troponin & CK Cardiac Panel Stat 06/03/25 07:38 XR chest 1V Stat EKG-12 Lead Stat Vital Signs Vital signs: Vital Signs - 8 hr 06/03/25 07:31 Temperature 96.1 F L Pulse Rate 55 L Respiratory Rate 16 Blood Pressure 136/78 Pulse Oximetry 96 Oxygen Delivery Method Room Air Medical Decision Making Lab Data 06/03/25 07:17 06/03/25 07:17 Labs: Lab Results 06/03/25 Range/Units 07:17 WBC 9.1 (4.5-11.0) X10^3/uL RBC 5.50 (4.5-5.9) X10^6/uL Hgb 17.3 (13.5-17.5) g/dL Hct 50.0 (41-53) % MCV 91.0 (80-100) fL MCH 31.5 (26-34) PG MCHC 34.6 (30-36) % RDW 14.0 (11.6-14.8) % Plt Count 169 (150-400) X10^3/uL Neut % (Auto) 50.3 (50-75) % Lymph % (Auto) 37.8 (25-40) % [place] % (Auto) 8.8 (3-14) % Eos % (Auto) 2.2 (2-4) % Baso % (Auto) 0.9 (0-2) % Neut # (Auto) 4600 (8148-3249) /uL Lymph # (Auto) 3400 (0293-0170) /uL [place] # (Auto) 800 (0-900) /uL Eos # (Auto) 200 (0-450) /uL Baso # (Auto) 100 (0-100) /uL Sodium 139 (137-145) mmol/L Potassium 4.4 (3.4-5.1) mmol/L Chloride 103 (98-107) mmol/L Carbon Dioxide 28 (22-32) mmol/L BUN 27 H (9-20) mg/dL Creatinine 1.23 (0.66-1.25) mg/dL Estimated GFR > 60 (>60) mL/min BUN/Creatinine Ratio 22.0 (6-22) Glucose 113 H (70-99) mg/dL Calcium 8.8 (8.4-10.2) mg/dL Total Bilirubin 0.9 (0.2-1.3) mg/dL AST 34 (17-59) IU/L ALT 55 H (<50) IU/L Alkaline Phosphatase 68 (38-126) U/L Total Creatine Kinase 35 L (55-170) U/L Troponin I < 0.012 (0.01-0.034) ng/mL NT-Pro-B Natriuret Pep 71 (<125) pg/mL Total Protein 7.4 (6.3-8.2) g/dL Albumin 4.5 (3.5-5.0) g/dL Globulin 2.9 (1.7-4.1) g/dL Albumin/Globulin Ratio 1.6 (1.0-2.8) Lipase 54 (23-300) U/L ECG Data Attestation: I personally reviewed and interpreted this ECG as follows: Prior ECG tracings: available for review Interpretation: Sinus bradycardia rate of 51 MA 190 QRS of 100 QTC of [address] elevation depression incomplete right bundle-branch block. Patient was prior from 08/27/2024 which appears similar to today's [facility] Narrative Medical decision making narrative: 64-year-old male found to be hypotensive with EMS had recent arthroscopic knee surgery does have a history of pulmonary embolism but stopped his Eliquis for the surgery and restarted the following day this Friday has been back on it for 2 days. Patient had lightheadedness and near syncopal episode and was hypotensive in the field with EMS and positive orthostatics. Patient received 1 L of fluids and had improvement in blood pressure he notes that his heart rate is typically in the low 60s. Suspect patient may have orthostatic hypotension secondary to the little bit of dehydration based on his elevated BUN also had narcotic pain medication today which he was not been taking regularly since his surgery. Does have a history of pulmonary embolism but has restarted his anticoagulants in his normal troponin, BNP making less likely to have significant pulmonary embolism. Labs labs show normal CBC, no anemia. EKG sinus bradycardia rate of 51, incomplete right bundle-branch block appears similar to prior from August of 2024. Chemistries show normal electrolytes BUN 27 creatinine of 1.23 glucose is 113 LFTs are normal except for an ALT of 55 total CK is 35 troponins less than 0.012 with a BNP of 71. Chest Xray shows no acute cardiopulmonary pathology. Patient received 1 L normal saline. Patient ambulated in the department without any issue is feeling much improved. Discharge Plan Departure Patient Disposition: Home Clinical Impression: Near syncope Instructions: DI for Syncope in Adults (Fainting) Activity Restrictions/Additional Instructions: Follow up as needed. Continue your home medications including you are anticoagulants as prescribed. You can take narcotic pain medication but make sure you are drinking plenty of fluids it can sometimes decreased your blood pressure. If you have recurrent episodes of syncope or lightheadedness, new chest pain, shortness of breath, new swelling of your extremities, fevers, persistent vomiting or other new or concerning changes return to the emergency department. Prescriptions: No Action Eliquis 5 mg tablet 5 mg PO BID Qty: 180 2RF Referrals: Kiko Dhaliwal DO [Primary Care Provider, Family Practice] Stand Alone Forms: Patient Portal/API
[2025-06-03 07:50] LABS: Add Manual Diff / Slide Review NO; Alanine Aminotransferase 55 IU/L (<50); Albumin 4.5 g/dL (3.5-5.0); Albumin Globulin Ratio 1.6 (1.0-2.8); Alkaline Phosphatase 68 U/L (38-126); Blood Urea Nitrogen 27 mg/dL (9-20); Calcium 8.8 mg/dL (8.4-10.2); Carbon Dioxide 28 mmol/L (22-32); Chloride 103 mmol/L (98-107); Creatine Kinase 35 U/L (55-170); Estimated Glomerular Filt Rate > 60 mL/min (>60); Globulin 2.9 g/dL (1.7-4.1); Glucose 113 mg/dL (70-99); HEMOLYSIS < 15 (0-50); Hematocrit 50.0 % (41-53); Hemoglobin 17.3 g/dL (13.5-17.5); Lymphocytes Absolute Auto 3400 /uL (1100-4500); Mean Corpuscular HGB Conc 34.6 % (30-36); Mean Corpuscular Hemoglobin 31.5 PG (26-34); Mean Corpuscular Volume 91.0 fL (80-100); Platelet Count 169 X10^3/uL (150-400); Sodium 139 mmol/L (137-145); Total Protein 7.4 g/dL (6.3-8.2)
[2025-06-03 07:52] LABS: Lipase 54 U/L (23-300); Potassium 4.4 mmol/L (3.4-5.1)
--- NOTE | 2025-06-03 07:52 | EKG_ITS ---
[address] [address] Test Date: 2025-06-03 Pat Name: Silas Singh Department: [facility] Room: Gender: Male Director Investor Relations: NAMRATA : 1960 Requested By: Order Number: [id number] Reading MD: Mian Whalen MD Measurements Intervals [place] Rate: 51 P: 45 CT: 190 QRS: -22 QRSD: 100 T: 15 QT: 454 QTc: 418 Interpretive Statements Sinus bradycardia Incomplete right bundle branch block Inferior infarct , age undetermined Electronically Signed On 06-04-2025 7:54:28 PDT by Mian Whalen MD
[2025-06-03 08:00] LABS: NT-proBNP (BNP-Adult 18+) 71 pg/mL (<125)
[2025-06-03 08:02] LABS: Troponin I < 0.012 ng/mL (0.01-0.034)
--- NOTE | 2025-06-03 08:02 | PC.NURSE ---
patient spouse states patient became lighted headed, spouse states she helped him get seated but then his eyes were open but he wasn't responding to her, when he did she reports he had a cold sweat start. dr. Vázquez removed patient leg wrap and bandage from surgery (05/31/25) right knee. patient states he doesn't think he hydrated enough yesterday. he did take his [place] 5mg around 0700 this am.
--- NOTE | 2025-06-03 08:07 | PC.NURSE ---
patient reports sensation equal on all extremities.
[2025-06-03 08:09] VITALS: PULSE 50; RESP 11; O2SAT 97
--- NOTE | 2025-06-03 08:10 | PC.NURSE ---
patient arrived with NS iv bolus of 500ml, dr. chow VO to finish the remaining 500ml. those are now complete.
[2025-06-03 08:30] VITALS: BP 122/75; PULSE 51; RESP 11; O2SAT 98
[2025-06-03 08:51] VITALS: BP 144/76; PULSE 52; RESP 14; O2SAT 97
[2025-06-03 09:00] VITALS: BP 138/76; PULSE 54; RESP 14; O2SAT 99
[2025-06-03 09:30] VITALS: BP 144/82; PULSE 56; RESP 16; O2SAT 98
== END 2025-06-03 09:31 | disposition home or self-care (01) ==
PROVIDERS: Emergency Provider Emergency Medicine; PCP Family Medicine
DX: R55 Syncope and collapse (principal); R42 Dizziness and giddiness
CPT/HCPCS: 36415; 71045; 80053; 82550; 83690; 83880; 84484; 85025; 93005; 93010; 99283; 99284

== ENCOUNTER → 2025-08-30 07:57 | Outpatient (CLI) | payer MEDICARE, SELFPAY ==
--- NOTE | 2025-08-30 07:57 | DI.ECHO.S_ITS ---
[facility] : : [address] : : [place] : : [id number] : : Phone: [phone] Echocardiogram Report + + :Name: MUKUND READ Study Date: 08/30/2025 Height: 72 in : :[facility] ReadingLocation: Weight: 230 lb : : Gender: Male BSA: 2.3 m2 : :: 1960 Age: 64 yrs BP: 147/97 mmHg: :Reason For Study: NEAR SYNCOPE : :Ordering Physician: MYRIAM, : :VALE Performed By: Blanca Pritchard : :Referring: VALE MIGUEL : + + Interpretation Summary - The left ventricular contractility is borderline. Estimated ejection fraction is approximately 50 to 55% with no segmental wall motion abnormalities. No LVH. Normal diastolic function - The right ventricular contractility is normal. - Mild right ventricular enlargement. All other cardiac chambers are of normal size. - Mild tricuspid regurgitation with estimated pulmonary systolic artery pressures of 27 mmHg. - Trace to mild pulmonic insufficiency. - No obvious intracardiac shunts. - No obvious intracardiac masses nor thrombi. - No hemodynamically significant pericardial effusion. - Low right-sided filling pressures. Conclusion: Low normal left ventricular systolic function with trace to mild valvular insufficiencies. When compared with previous echocardiogram, there is improvement of the right ventricular systolic function but a decline in the left ventricular systolic function. Procedure: A two-dimensional transthoracic echocardiogram with color flow and Doppler was performed. The study quality was technically adequate. Comparison is made with the echocardiogram of 08/27/2024. The patient was in sinus bradycardia with heart rates between 54-61 bpm during the exam. Left Ventricle: The left ventricle is normal in size and wall thickness. The ejection fraction is estimated to be 50-55%. Normal diastolic function. Right Ventricle: The right ventricle is mildly dilated. Right ventricular systolic function is at the lower limits of normal. Atria: The left atrial size is normal. Right atrial size is normal. There is no Doppler evidence for an interatrial shunt. Mitral Valve: The mitral valve leaflets appear borderline thickened. There is trace mitral regurgitation. Aortic Valve: The aortic valve is trileaflet. The aortic valve opens well. There is no aortic valve stenosis. No aortic regurgitation is present. Tricuspid Valve: The tricuspid valve leaflets are thin and pliable. There is mild tricuspid regurgitation. The right ventricular systolic pressure is estimated to be at least 27 mmHg based on an estimated right atrial pressure of 3 mm Hg. Pulmonic Valve: The pulmonic valve leaflets are thin and pliable; valve motion is normal. There is mild pulmonic regurgitation. Great Vessels: The aortic root is normal size. The dimensions of the ascending aorta are normal. The IVC is of normal diameter and collapses greater than 50% with a sniff. This suggests a low right atrial pressure of 3 mm Hg. Pericardium/ Pleura There is no pericardial effusion. There is no pleural effusion. MMode/2D Measurements & Calculations LVIDd: 4.9 cm LVOT diam: 2.3 cm LVIDs: 3.6 cm Ao root diam: 3.4 cm FS: 26.5 % asc Aorta Diam: 3.5 cm IVSd: 1.00 cm Ao Arch Diam (Prox Trans): 3.5 cm LVPWd: 0.90 cm LV riggs. diameter/BSA (cm/m^2): 2.1 LV sys. diameter/BSA (cm/m^2): 1.6 LA A2 area: 17.7 cm2 RA long axis: 5.5 cm LA A4 area: 18.8 cm2 RA area: 16.2 cm2 LA length (vol): 5.6 cm RA vol: 40.3 ml LA vol: 50.0 ml RA : 17.8 ml/m2 LA vol index: 22.1 ml/m2 IVC diam: 1.5 cm RVD1 (basal): 4.4 cm RVD2 (mid): 3.7 cm TAPSE: 1.5 cm Doppler Measurements & Calculations Ao V2 max: 117.0 cm/sec LVOT Max Ankit: 88.5 cm/sec Ao V2 mean: 78.3 cm/sec LV V1 max P.1 mmHg Ao max P.5 mmHg LV V1 VTI: 18.8 cm Ao mean P.8 mmHg PHILIP(I,D): 3.4 cm2 Ao V2 VTI: 23.0 cm PHILIP(V,D): 3.1 cm2 sev ratio: 0.81 PHILIP indexed to BSA (cm^2/m^2): 1.5 MV E max ankit: 42.7 cm/sec TR max ankit: 245.6 cm/sec MV A max ankit: 53.7 cm/sec TR max P.1 mmHg MV E/A: 0.80 PA V2 max: 109.4 cm/sec Med Peak E' Ankit: 7.1 cm/sec PA V2 mean: 72.3 cm/sec E/E' med: 6.0 PA mean P.4 mmHg Lat Peak E' Ankit: 9.4 cm/sec WICHO pr(Accel): 43.0 mmHg E/E' lat: 4.6 E/e' average: 5.3 MV dec time: 0.24 sec SV(LVOT): 77.2 ml Reading Physician:GABBY
== END ==
PROVIDERS: PCP Family Medicine; Referring Provider Family Medicine; Visit Provider Family Medicine
DX: I07.1 Rheumatic tricuspid insufficiency (principal); R55 Syncope and collapse; I10 Essential (primary) hypertension
CPT/HCPCS: 93306

== ENCOUNTER → 2025-11-29 07:43 | Outpatient (CLI) | payer MEDICARE, SELFPAY ==
--- NOTE | 2025-12-09 12:31 | DI.NM.S_ITS ---
DATE OF SERVICE: PHARMACOLOGICAL PERFUSION STUDY INDICATIONS: Ventricular tachycardia. RADIOPHARMACEUTICAL: 26.3 millicurie technetium-99m Myoview IV was injected at stress and 25 millicurie technetium-99m Myoview IV was injected at rest. CARDIAC STRESS: The patient underwent pharmacological perfusion study using standard Lexiscan protocol under the supervision of an attending staff. The patient remained hemodynamically stable. Resting blood pressure 140/90. Baseline rhythm sinus with some PVCs. During stress, no worsening PVCs or ventricular tachycardia. No ischemic EKG changes. Minimal shortness of breath. No chest pain. The patient remained hemodynamically stable. RAW DATA: There is increased subdiaphragmatic activity. The patient's weight is 227 pounds. GATED STUDY: Resting LV ejection fraction 64% and stress LV ejection fraction 69%. TID ratio 0.84, which is within normal limits. Lung/heart ratio 0.25, which is within normal limits. MYOCARDIAL PERFUSION SCAN: Stress supine, resting supine, and stress prone images were compared to each other. There appears to be predominantly fixed, small size, severely decreased perfusion of basal inferior wall suggestive of old infarction without any significant reversible ischemia. Summed stress and summed rest score is 3 with summed difference score is 0. 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 Preserved LV function. Some isolated PVCs without any ventricular tachycardia or ischemic EKG changes. No anginal symptoms. In absence of ischemia, preserved LV function and without any complex arrhythmias during stress test or inducible ischemic changes, overall not a high-risk perfusion scan. Correlate clinically. Silas Singh - PHUONG/sonya/JANAY doc#: [id number]/job#: [id number] dd: 11/30/2025 16:40:00 dt: 11/30/2025 17:03:00 DICTATING MD/COPIES TO: Janneth Jorge MD COPIES MNE: SATURNINO;
== END ==
LOC: NUCM 07:43
PROVIDERS: PCP Family Medicine; Referring Provider Internal Medicine Cardiovascular Disease; Visit Provider Internal Medicine Cardiovascular Disease
DX: I47.20 Ventricular tachycardia, unspecified (principal); R94.39 Abnormal result of other cardiovascular function study
CPT/HCPCS: 78452; 93017; A9502; J2785